=== PATIENT | male | born 1995 | race Asian ===

== ENCOUNTER 2021-09-26 17:44 | Inpatient (IN) | payer MEDICAID ==
[~2021-09-26] VITALS: Ht 167.6 cm; Wt 75.7 kg
[2021-09-26 18:52] LABS: BASOPHILS % (AUTO) 0.7 % (0.0-2.0); HEMATOCRIT 41.5 % (41-53); HEMOGLOBIN 13.8 g/dL (13.5-17.5); LYMPHOCYTES # (AUTO) 2.9 K/uL (1.0-4.8); LYMPHOCYTES % (AUTO) 33.7 % (22.0-44.0); MEAN CORPUSCULAR HGB CONC 33.4 G/dL (31.0-37.0); MEAN CORPUSCULAR VOLUME 81 fL (80-100); MONOCYTES # (AUTO) 0.7 K/uL (0.1-1.0); MONOCYTES % (AUTO) 7.9 % (2.0-9.0); NEUTROPHILS # (AUTO) 4.6 K/uL (1.8-7.7); NEUTROPHILS % (AUTO) 53.7 % (40.0-70.0); PLATELET COUNT (AUTO) 350 K/uL (150-450); RED BLOOD CELL COUNT(AUTO) 5.12 MIL/uL (4.50-5.90); RED CELL DISTRIBUTION WIDTH 13.9 % (11.5-14.5)
[2021-09-26 18:54] LABS: COVID AG,FIA SOURCE NASOPHARYNGEAL
[2021-09-26 19:09] LABS: ANION GAP 9 mmol/L (8-16); CALCIUM, TOTAL 9.2 mg/dL (8.8-10.5); CARBON DIOXIDE 28 mmol/L (22-29); CHLORIDE 103 mmol/L (98-107); GLOMERULAR FILTR. RATE CALC > 60 mL/min (>60); GLUCOSE,RANDOM 100 mg/dL (70-110); POTASSIUM 3.4 mmol/L (3.5-5.1); SODIUM SERUM 140 mmol/L (136-145); UREA NITROGEN, BLOOD 18 mg/dL (7-18)
[2021-09-26 19:26] LABS: ALANINE AMINOTRANSFERASE 23 U/L (12-78); ALBUMIN 4.3 g/dL (3.4-5.0); ALKALINE PHOSPHATASE 20 U/L (46-116); ASPARTATE AMINOTRANSFERASE 23 U/L (15-37); BILIRUBIN,TOTAL 1.4 mg/dL (0.1-1.0); FREE T4 (FREE THYROXINE) 1.19 ng/dL (0.76-1.46); TOTAL PROTEIN, SERUM 8.4 g/dL (6.4-8.2)
[2021-09-26] MEDS ORDERED: LORazepam 2 MG TABLET PO ONE (22:00)
[2021-09-26] MEDS ORDERED: DiphenhydrAMINE HCL 50 MG CAPSULE PO ONE (22:00)
[2021-09-26] MEDS ORDERED: HALOPERIDOL 5 MG TABLET PO ONE (22:00)
[2021-09-26] MEDS ORDERED: POTASSIUM CHLORIDE 20 MEQ ER TABLET PO ONE (22:30)
[2021-09-26] MEDS ORDERED: QUEtiapine FUMARATE 100 MG TABLET PO PRN (23:00)
[2021-09-27 00:28] LABS: CHOL/HDL RATIO 4.4 (4.2-7.3); CHOLESTEROL 228 mg/dL (131-200); HDL CHOLESTEROL 52 mg/dL (40-60); LDL CHOL (CALC.) 152 mg/dL (0-130); TRIGLYCERIDES 122 mg/dL (15-150)
[2021-09-27 02:43] VITALS: BP 118/70
[2021-09-27] MEDS ORDERED: INFLUENZA VIRUS VACCINE QVS 2021-22 (6MO+)/PF 60 MCG/0.5 ML SYRINGE IM. ONE (03:30)
[2021-09-27 07:19] LABS: ANION GAP 7 mmol/L (8-16); CALCIUM, TOTAL 8.9 mg/dL (8.8-10.5); CARBON DIOXIDE 27 mmol/L (22-29); CHLORIDE 106 mmol/L (98-107); CREATININE 0.86 mg/dL (0.60-1.30); GLOMERULAR FILTR. RATE CALC > 60 mL/min (>60); GLUCOSE,RANDOM 99 mg/dL (70-110); POTASSIUM 3.5 mmol/L (3.5-5.1); SODIUM SERUM 140 mmol/L (136-145); UREA NITROGEN, BLOOD 16 mg/dL (7-18)
[2021-09-27] MEDS ORDERED: ALBUTEROL SULFATE HFA 90 MCG/PUFF 8 GM INHALER IH PRN (07:30)
[2021-09-27] MEDS ORDERED: MAGNESIUM HYDROXIDE SUSPENSION 30 ML UDCUP PO PRN (07:30)
[2021-09-27] MEDS ORDERED: MAG HYDROX/AL HYDROX/SIMETH ES 30 ML SUSPENSION UDCUP PO PRN (07:30)
[2021-09-27] MEDS ORDERED: ACETAMINOPHEN 325 MG TABLET PO PRN (07:30)
[2021-09-27] MEDS ORDERED: NICOTINE 14 MG/24 HOUR PATCH TD PRN (07:30)
[2021-09-27] MEDS ORDERED: PETROLATUM,WHITE 28 GM JELLY TP PRN (07:30)
[2021-09-27] MEDS ORDERED: CloNIDine HCL 0.1 MG TABLET PO PRN (07:30)
[2021-09-27] MEDS ORDERED: DOCUSATE SODIUM 100 MG CAPSULE PO PRN (07:30)
[2021-09-27] MEDS ORDERED: LOPERAMIDE HCL 2 MG CAPSULE PO PRN (07:30)
[2021-09-27] MEDS ORDERED: IBUPROFEN 400 MG TABLET PO PRN (07:30)
[2021-09-27] MEDS ORDERED: ONDANSETRON HCL 4 MG TABLET PO PRN (07:30)
[2021-09-27] MEDS ORDERED: GuaiFENesin/D-METHORPHAN [SUGAR-FREE] 200-20MG/10 ML SYRUP UDCUP PO PRN (07:30)
[2021-09-27 08:33] VITALS: BP 129/73
[2021-09-27] MEDS: RisperiDONE 1 MG TABLET PO SCH ×2 (11:45→20:44)
[2021-09-28 08:24] VITALS: BP 109/68
[2021-09-28] MEDS: RisperiDONE 1 MG TABLET PO SCH ×2 (08:28→20:43)
[2021-09-28] MEDS: HALOPERIDOL 5 MG TABLET PO PRN (16:06)
[2021-09-28] MEDS: LORazepam 2 MG TABLET PO PRN (16:07)
[2021-09-28 16:24] VITALS: BP 143/89
[2021-09-29 06:29] VITALS: BP 124/79
[2021-09-29 08:20] VITALS: BP 142/98
[2021-09-29] MEDS: RisperiDONE 1 MG TABLET PO SCH ×2 (08:55→20:40)
[2021-09-29] MEDS: LORazepam 2 MG TABLET PO PRN ×2 (08:55→16:53)
[2021-09-29] MEDS: HALOPERIDOL 5 MG TABLET PO PRN (16:53)
[2021-09-29 16:54] VITALS: BP 100/72
[2021-09-30 06:30] VITALS: BP 118/75
[2021-09-30 08:16] VITALS: BP 131/78
[2021-09-30] MEDS: LORazepam 2 MG TABLET PO PRN ×2 (08:30→20:12)
[2021-09-30] MEDS: RisperiDONE 1 MG TABLET PO SCH ×2 (08:30→20:11)
[2021-09-30 16:22] VITALS: BP 144/81
[2021-10-01 00:10] VITALS: BP 128/80
[2021-10-01 08:08] VITALS: BP 119/78
[2021-10-01] MEDS: RisperiDONE 1 MG TABLET PO SCH ×2 (08:53→20:11)
[2021-10-01 22:41] VITALS: BP 112/72
[2021-10-02 03:55] VITALS: BP 110/78
[2021-10-02 08:08] VITALS: BP 132/90
[2021-10-02] MEDS: RisperiDONE 1 MG TABLET PO SCH (08:20)
[2021-10-02] MEDS ORDERED: RISP1TAB89 PO (11:12)
== END 2021-10-02 13:30 | disposition left against medical advice (07) | DRG 750 ==
LOC: EMS 18:31 → B3A 09-27 00:19
PROVIDERS: ADMIT Psychiatry & Neurology Psychiatry; ATTEND Psychiatry & Neurology Psychiatry
DX: F20.0 Paranoid schizophrenia (principal); E78.5 Hyperlipidemia, unspecified; Z53.21 Procedure and treatment not carried out due to patient leaving prior to being seen by health care provider; E87.6 Hypokalemia; Z20.822 Contact with and (suspected) exposure to COVID-19; R10.13 Epigastric pain; F12.90 Cannabis use, unspecified, uncomplicated; Z79.899 Other long term (current) drug therapy
CPT/HCPCS: 80048; 80053; 80061; 84439; 84443; 85025; 99285; G0480

== ENCOUNTER 2023-03-25 04:33 | Inpatient (IN) | payer MEDICAID ==
[~2023-03-25] VITALS: Ht 167.6 cm; Wt 84.4 kg
[~2023-03-25 04:33] MED LIST: RISP1TAB89 PO
[2023-03-25] MEDS ORDERED: RisperiDONE 1 MG TABLET PO ONE (05:00)
[2023-03-25] MEDS ORDERED: BACITRACIN 0.9 GM PACKET OINTMENT TP ONE (05:00)
[2023-03-25] MEDS ORDERED: DiphenhydrAMINE HCL 25 MG CAPSULE PO ONE (05:00)
[2023-03-25] MEDS ORDERED: LORazepam 2 MG TABLET PO ONE (05:00)
[2023-03-25 05:35] LABS: BASOPHILS % (AUTO) 0.7 % (0.0-2.0); EOSINOPHILS % (AUTO) 7.9 % (1.0-6.0); HEMATOCRIT 42.6 % (41-53); LYMPHOCYTES # (AUTO) 3.2 K/uL (1.0-4.8); LYMPHOCYTES % (AUTO) 40.3 % (22.0-44.0); MEAN CORPUSCULAR HEMOGLOBIN 27.5 pg (26.0-34.0); MEAN CORPUSCULAR HGB CONC 32.9 G/dL (31.0-37.0); MEAN CORPUSCULAR VOLUME 84 fL (80-100); MONOCYTES # (AUTO) 0.6 K/uL (0.1-1.0); MONOCYTES % (AUTO) 7.5 % (2.0-9.0); NEUTROPHILS # (AUTO) 3.4 K/uL (1.8-7.7); NEUTROPHILS % (AUTO) 43.6 % (40.0-70.0); PLATELET COUNT (AUTO) 323 K/uL (150-450); RED CELL DISTRIBUTION WIDTH 13.5 % (11.5-14.5)
[2023-03-25 05:45] LABS: ANION GAP 9 mmol/L (8-16); CALCIUM, TOTAL 8.7 mg/dL (8.8-10.5); CARBON DIOXIDE 26 mmol/L (22-29); CHLORIDE 104 mmol/L (98-107); CREATININE 0.96 mg/dL (0.60-1.30); GLOMERULAR FILTR. RATE CALC > 60 mL/min (>60); GLUCOSE,RANDOM 100 mg/dL (70-110); POTASSIUM 3.3 mmol/L (3.5-5.1); SODIUM SERUM 139 mmol/L (136-145)
[2023-03-25] MEDS ORDERED: HALOPERIDOL 5 MG TABLET PO PRN (05:45)
[2023-03-25 05:51] LABS: ALANINE AMINOTRANSFERASE 14 U/L (12-78); ALBUMIN 3.9 g/dL (3.4-5.0); ALKALINE PHOSPHATASE 23 U/L (46-116); ASPARTATE AMINOTRANSFERASE 12 U/L (15-37); BILIRUBIN,TOTAL 0.9 mg/dL (0.1-1.0); TOTAL PROTEIN, SERUM 7.7 g/dL (6.4-8.2)
[2023-03-25] MEDS ORDERED: POTASSIUM CHLORIDE 10% 40 MEQ/30 ML LIQUID UDCUP PO ONE (06:15)
[2023-03-25 06:40] LABS: COVID AG,FIA SOURCE NASOPHARYNGEAL
[2023-03-25 06:57] LABS: APPEARANCE,URINE HAZY (CLEAR); BILIRUBIN,URINE NEGATIVE (NEGATIVE); GLUCOSE, URINE (UA) NEGATIVE (NEGATIVE); KETONES,URINE NEGATIVE (NEGATIVE); LEUKOCYTE ESTERASE ,URINE NEGATIVE (NEGATIVE); NITRATE,URINE NEGATIVE (NEGATIVE); OCCULT BLOOD,URINE NEGATIVE (NEGATIVE); PH,URINE 6.5 (5.0-8.0); PROTEIN,URINE 30-70 mg/dL (NEGATIVE); SPECIFIC GRAVITIY, URINE 1.026 (1.003-1.030); UROBILINOGEN,URINE <=1.0 mg/dL (<=1.0)
[2023-03-25 07:04] LABS: AMPHET/METH SCREEN,URINE NEGATIVE (NEGATIVE); BARBITURATE SCREEN, URINE NEGATIVE (NEGATIVE); BENZODIAZEPINES SCREEN,URINE NEGATIVE (NEGATIVE); CANNABINOID SCREEN,URINE NEGATIVE (NEGATIVE); COCAINE SCREEN,URINE NEGATIVE (NEGATIVE); METHADONE SCREEN, URINE NEGATIVE (NEGATIVE); OPIATE SCREEN,URINE NEGATIVE (NEGATIVE); PHENCYCLIDINE SCREEN,URINE NEGATIVE (NEGATIVE)
[2023-03-25] MEDS ORDERED: NICOTINE 14 MG/24 HOUR PATCH TD PRN (17:30)
[2023-03-25] MEDS ORDERED: MAG HYDROX/AL HYDROX/SIMETH ES 30 ML SUSPENSION UDCUP PO PRN (17:30)
[2023-03-25] MEDS ORDERED: DOCUSATE SODIUM 100 MG CAPSULE PO PRN (17:30)
[2023-03-25] MEDS ORDERED: CloNIDine HCL 0.1 MG TABLET PO PRN (17:30)
[2023-03-25] MEDS ORDERED: PETROLATUM,WHITE 28 GM JELLY TP PRN (17:30)
[2023-03-25] MEDS ORDERED: ACETAMINOPHEN 325 MG TABLET PO PRN (17:30)
[2023-03-25] MEDS ORDERED: ONDANSETRON HCL 4 MG TABLET PO PRN (17:30)
[2023-03-25] MEDS ORDERED: ALBUTEROL SULFATE HFA 90 MCG/PUFF 8 GM INHALER IH PRN (17:30)
[2023-03-25] MEDS ORDERED: MAGNESIUM HYDROXIDE SUSPENSION 30 ML UDCUP PO PRN (17:30)
[2023-03-25] MEDS ORDERED: LOPERAMIDE HCL 2 MG CAPSULE PO PRN (17:30)
[2023-03-25 18:37] VITALS: BP 126/82; PULSE 65; RESP 18; TEMP 97.7; O2SAT 100
[2023-03-25 20:44] VITALS: BP 112/76; PULSE 75; RESP 17; TEMP 97.5; O2SAT 100
[2023-03-26 08:25] LABS: CHOL/HDL RATIO 5.4 (4.2-7.3)
[2023-03-26 08:28] LABS: HEMOGLOBIN A1C 4.9 % (3.8-5.6)
[2023-03-26 08:29] LABS: THYROID STIMULATING HORMONE 1.15 uIU/mL (0.36-3.74)
[2023-03-26 08:36] VITALS: RESP 18
[2023-03-26] MEDS: LORazepam 2 MG TABLET PO PRN (10:00)
[2023-03-26] MEDS ORDERED: RisperiDONE 2 MG TABLET PO ONE (13:45)
[2023-03-26] MEDS: RisperiDONE 2 MG TABLET PO SCH (17:05)
[2023-03-26 20:19] VITALS: BP 109/64; PULSE 70; RESP 18; TEMP 97.7; O2SAT 98
[2023-03-27 08:28] VITALS: RESP 17
[2023-03-27] MEDS: RisperiDONE 2 MG TABLET PO SCH ×2 (08:41→17:12)
[2023-03-27] MEDS: LORazepam 2 MG TABLET PO PRN ×2 (17:12→21:14)
[2023-03-27] MEDS: IBUPROFEN 400 MG TABLET PO PRN (18:11)
[2023-03-27 18:12] VITALS: RESP 16
[2023-03-27 19:36] VITALS: RESP 16
[2023-03-27 20:17] VITALS: BP 139/84; PULSE 90; RESP 20; TEMP 97.8; O2SAT 99
[2023-03-27] MEDS: ZOLPIDEM TARTRATE 10 MG TABLET PO PRN (20:46)
[2023-03-27 21:46] VITALS: RESP 18
[2023-03-28 09:00] VITALS: BP 123/79; PULSE 95; RESP 18; TEMP 98; O2SAT 99
[2023-03-28] MEDS: RisperiDONE 2 MG TABLET PO SCH ×2 (09:34→17:56)
[2023-03-28 18:35] VITALS: RESP 17
[2023-03-28] MEDS: IBUPROFEN 400 MG TABLET PO PRN (18:35)
[2023-03-28] MEDS ORDERED: DiphenhydrAMINE HCL 50 MG/ML VIAL ONE (19:01)
[2023-03-28] MEDS ORDERED: DiphenhydrAMINE HCL 50 MG/ML VIAL IM ONE (19:15)
[2023-03-28 19:35] VITALS: RESP 18
[2023-03-28 20:54] VITALS: BP 123/69; PULSE 100; RESP 17; TEMP 97.8; O2SAT 100
[2023-03-29] MEDS: GuaiFENesin/D-METHORPHAN [SUGAR-FREE] 200-20MG/10 ML SYRUP UDCUP PO PRN (00:11)
[2023-03-29] MEDS: RisperiDONE 2 MG TABLET PO SCH ×2 (08:16→16:12)
[2023-03-29] MEDS: BENZTROPINE MESYLATE 1 MG TABLET PO SCH ×2 (08:16→16:12)
[2023-03-29 09:36] VITALS: BP 122/81; PULSE 75; RESP 20; TEMP 97.7; O2SAT 99
[2023-03-29 20:45] VITALS: BP 119/82; PULSE 96; RESP 18; TEMP 97.8; O2SAT 100
[2023-03-29] MEDS: LORazepam 2 MG TABLET PO PRN (21:05)
[2023-03-30] MEDS: RisperiDONE 2 MG TABLET PO SCH (08:21)
[2023-03-30] MEDS: BENZTROPINE MESYLATE 1 MG TABLET PO SCH ×2 (08:21→17:28)
[2023-03-30 08:32] VITALS: BP 100/64; PULSE 69; RESP 17; TEMP 98; O2SAT 99
[2023-03-30] MEDS: RisperiDONE 3 MG TABLET PO SCH (17:28)
[2023-03-30] MEDS: LORazepam 2 MG TABLET PO PRN (17:28)
[2023-03-30 20:22] VITALS: BP 122/68; PULSE 80; RESP 20; TEMP 97.7; O2SAT 98
[2023-03-30] MEDS: ZOLPIDEM TARTRATE 10 MG TABLET PO PRN (20:25)
[2023-03-31] MEDS: RisperiDONE 3 MG TABLET PO SCH ×2 (08:06→16:51)
[2023-03-31] MEDS: BENZTROPINE MESYLATE 1 MG TABLET PO SCH ×2 (08:06→16:52)
[2023-03-31 08:56] VITALS: BP 121/86; PULSE 94; RESP 17; TEMP 97.8; O2SAT 100
[2023-03-31] MEDS: LORazepam 2 MG TABLET PO PRN (16:52)
[2023-03-31 20:17] VITALS: BP 145/82; PULSE 85; RESP 18; TEMP 97.6
[2023-04-01] MEDS: BENZTROPINE MESYLATE 1 MG TABLET PO SCH ×2 (08:40→17:13)
[2023-04-01] MEDS: RisperiDONE 3 MG TABLET PO SCH ×2 (08:40→17:09)
[2023-04-01 08:42] VITALS: BP 126/70; PULSE 80; RESP 18; TEMP 96.6; O2SAT 99
[2023-04-01] MEDS: LORazepam 2 MG TABLET PO PRN (17:12)
[2023-04-01 20:22] VITALS: BP 118/72; PULSE 80; RESP 19; TEMP 97.6; O2SAT 99
[2023-04-02] MEDS: BENZTROPINE MESYLATE 1 MG TABLET PO SCH ×2 (08:29→17:10)
[2023-04-02] MEDS: RisperiDONE 3 MG TABLET PO SCH ×2 (08:29→17:10)
[2023-04-02 08:43] VITALS: BP 108/83; PULSE 74; RESP 17; TEMP 98; O2SAT 100
[2023-04-02] MEDS: IBUPROFEN 400 MG TABLET PO PRN (12:48)
[2023-04-02] MEDS: LORazepam 2 MG TABLET PO PRN (17:10)
[2023-04-02 20:23] VITALS: BP 110/70; PULSE 70; RESP 20; TEMP 98; O2SAT 98
[2023-04-03 08:32] VITALS: BP 135/76; PULSE 83; RESP 18; TEMP 97.8; O2SAT 96
[2023-04-03] MEDS: RisperiDONE 3 MG TABLET PO SCH ×2 (08:36→16:19)
[2023-04-03] MEDS: BENZTROPINE MESYLATE 1 MG TABLET PO SCH ×2 (08:36→16:19)
[2023-04-03] MEDS: LORazepam 2 MG TABLET PO PRN (16:19)
[2023-04-03 20:03] VITALS: BP 118/70; PULSE 78; RESP 19; TEMP 97.8
[2023-04-04] MEDS: BENZTROPINE MESYLATE 1 MG TABLET PO SCH ×2 (08:02→16:07)
[2023-04-04] MEDS: RisperiDONE 3 MG TABLET PO SCH ×2 (08:02→16:07)
[2023-04-04 08:31] VITALS: BP 109/83; PULSE 81; RESP 18; TEMP 97.6; O2SAT 100
[2023-04-04] MEDS: GuaiFENesin/D-METHORPHAN [SUGAR-FREE] 200-20MG/10 ML SYRUP UDCUP PO PRN (13:08)
[2023-04-04 21:42] VITALS: BP 131/76; PULSE 93; RESP 16; TEMP 97.8; O2SAT 100
[2023-04-05 08:18] VITALS: BP 144/76; PULSE 97; RESP 18; TEMP 97.6; O2SAT 99
[2023-04-05] MEDS: BENZTROPINE MESYLATE 1 MG TABLET PO SCH ×2 (08:25→16:32)
[2023-04-05] MEDS: RisperiDONE 3 MG TABLET PO SCH ×2 (08:25→16:31)
[2023-04-05] MEDS: LORazepam 2 MG TABLET PO PRN ×2 (13:21→19:20)
[2023-04-05 20:42] VITALS: BP 128/76; PULSE 86; RESP 18; TEMP 97.2; O2SAT 98
[2023-04-06] MEDS: RisperiDONE 3 MG TABLET PO SCH ×2 (08:10→16:48)
[2023-04-06] MEDS: BENZTROPINE MESYLATE 1 MG TABLET PO SCH ×2 (08:10→16:48)
[2023-04-06 08:19] VITALS: BP 113/80; PULSE 93; RESP 17; TEMP 97.8; O2SAT 99
[2023-04-06] MEDS: LORazepam 2 MG TABLET PO PRN (17:04)
[2023-04-06 20:20] VITALS: BP 114/72; PULSE 90; TEMP 98.2
[2023-04-06] MEDS: ZOLPIDEM TARTRATE 10 MG TABLET PO PRN (20:31)
[2023-04-07] MEDS: BENZTROPINE MESYLATE 1 MG TABLET PO SCH ×2 (08:22→16:36)
[2023-04-07] MEDS: RisperiDONE 3 MG TABLET PO SCH ×2 (08:22→16:36)
[2023-04-07 08:41] VITALS: BP 131/98; PULSE 77; RESP 18; TEMP 97.9; O2SAT 99
[2023-04-07] MEDS: LORazepam 2 MG TABLET PO PRN (16:36)
[2023-04-07] MEDS: GuaiFENesin/D-METHORPHAN [SUGAR-FREE] 200-20MG/10 ML SYRUP UDCUP PO PRN (16:42)
[2023-04-07 20:22] VITALS: BP 128/84; PULSE 80; RESP 19; TEMP 98.2; O2SAT 98
[2023-04-08] MEDS: LORazepam 2 MG TABLET PO PRN ×2 (08:27→17:06)
[2023-04-08] MEDS: RisperiDONE 3 MG TABLET PO SCH ×2 (08:27→17:04)
[2023-04-08] MEDS: BENZTROPINE MESYLATE 1 MG TABLET PO SCH ×2 (08:27→17:06)
[2023-04-08 08:49] VITALS: BP 100/62; PULSE 79; RESP 17; TEMP 97.5; O2SAT 96
[2023-04-08 20:19] VITALS: BP 106/70; PULSE 78; RESP 18; TEMP 97.7; O2SAT 97
[2023-04-09] MEDS: RisperiDONE 3 MG TABLET PO SCH ×2 (08:32→16:56)
[2023-04-09] MEDS: BENZTROPINE MESYLATE 1 MG TABLET PO SCH ×2 (08:32→16:59)
[2023-04-09 09:24] VITALS: BP 112/92; PULSE 100; RESP 18; TEMP 97.9; O2SAT 99
[2023-04-09] MEDS: LORazepam 2 MG TABLET PO PRN (16:59)
[2023-04-09 20:23] VITALS: BP 114/82; PULSE 87; RESP 20; TEMP 98.4; O2SAT 97
[2023-04-10] MEDS: RisperiDONE 3 MG TABLET PO SCH ×2 (08:19→17:19)
[2023-04-10] MEDS: BENZTROPINE MESYLATE 1 MG TABLET PO SCH ×2 (08:19→17:19)
[2023-04-10 08:37] VITALS: BP 111/70; PULSE 96; RESP 17; TEMP 97.5; O2SAT 97
[2023-04-10] MEDS: LORazepam 2 MG TABLET PO PRN ×2 (12:29→17:19)
[2023-04-10 20:06] VITALS: BP 104/82; PULSE 93; RESP 18; TEMP 97.7; O2SAT 99
[2023-04-11] MEDS: BENZTROPINE MESYLATE 1 MG TABLET PO SCH ×2 (08:05→16:12)
[2023-04-11] MEDS: RisperiDONE 3 MG TABLET PO SCH ×2 (08:05→16:12)
[2023-04-11 08:55] VITALS: BP 119/61; PULSE 70; RESP 20; TEMP 98; O2SAT 99
[2023-04-11] MEDS: GuaiFENesin/D-METHORPHAN [SUGAR-FREE] 200-20MG/10 ML SYRUP UDCUP PO PRN (19:39)
[2023-04-11 20:45] VITALS: BP 132/88; PULSE 75; RESP 18; TEMP 97.2; O2SAT 97
[2023-04-12 08:26] VITALS: BP 114/74; PULSE 81; RESP 18; TEMP 98.3; O2SAT 98
[2023-04-12] MEDS: BENZTROPINE MESYLATE 1 MG TABLET PO SCH ×2 (08:51→16:23)
[2023-04-12] MEDS: RisperiDONE 3 MG TABLET PO SCH ×2 (08:51→16:23)
[2023-04-12] MEDS: LORazepam 2 MG TABLET PO PRN (14:55)
[2023-04-12 20:29] VITALS: BP 109/77; PULSE 101; RESP 20; TEMP 97.8; O2SAT 98
[2023-04-13] MEDS: RisperiDONE 3 MG TABLET PO SCH ×2 (08:14→17:05)
[2023-04-13] MEDS: BENZTROPINE MESYLATE 1 MG TABLET PO SCH ×2 (08:14→17:06)
[2023-04-13 08:42] VITALS: BP 117/77; PULSE 80; RESP 17; TEMP 98; O2SAT 98
[2023-04-13] MEDS: LORazepam 2 MG TABLET PO PRN (17:06)
[2023-04-13] MEDS: ZOLPIDEM TARTRATE 10 MG TABLET PO PRN (20:24)
[2023-04-13 20:29] VITALS: BP 114/64; PULSE 72; RESP 19; TEMP 97.8; O2SAT 97
[2023-04-14] MEDS: RisperiDONE 3 MG TABLET PO SCH ×2 (08:19→17:17)
[2023-04-14] MEDS: BENZTROPINE MESYLATE 1 MG TABLET PO SCH ×2 (08:19→17:17)
[2023-04-14 09:21] VITALS: BP 98/59; PULSE 75; RESP 17; TEMP 98.1; O2SAT 97
[2023-04-14] MEDS: LORazepam 2 MG TABLET PO PRN (19:10)
[2023-04-14 20:31] VITALS: BP 123/73; PULSE 90; RESP 18; TEMP 97.6; O2SAT 98
[2023-04-15 08:18] VITALS: BP 105/59; PULSE 69; RESP 17; TEMP 98; O2SAT 96
[2023-04-15] MEDS: RisperiDONE 3 MG TABLET PO SCH (08:32)
[2023-04-15] MEDS: BENZTROPINE MESYLATE 1 MG TABLET PO SCH (08:32)
[2023-04-15] MEDS ORDERED: RISP3TAB63 PO (09:43)
[2023-04-15] MEDS ORDERED: BENZ1TAB84 PO (09:43)
== END 2023-04-15 12:45 | disposition home or self-care (01) | DRG 750 ==
LOC: EMS 04:33 → B3A 15:39 → B2S 04-14 18:34
PROVIDERS: ADMIT Psychiatry & Neurology Child & Adolescent Psychiatry; ATTEND Psychiatry & Neurology Child & Adolescent Psychiatry
DX: F25.0 Schizoaffective disorder, bipolar type (principal); Z91.199 Patient's noncompliance with other medical treatment and regimen due to unspecified reason; E87.6 Hypokalemia; Z20.822 Contact with and (suspected) exposure to COVID-19; G47.00 Insomnia, unspecified; F41.9 Anxiety disorder, unspecified; Z79.899 Other long term (current) drug therapy
CPT/HCPCS: 80053; 80061; 80307; 81003; 83036; 84132; 84443; 85025; 99285; G0480; J1200; J3535

== ENCOUNTER 2024-03-14 12:09 | Inpatient (IN) | payer MEDICAID ==
[~2024-03-14] VITALS: Ht 167.6 cm; Wt 85.8 kg
[~2024-03-14 12:09] MED LIST changes: +BENZ-247 PO; -RISP1TAB89 PO; +RISP3TAB77 PO
[2024-03-14] MEDS: LORazepam 2 MG/ML VIAL IM ONE (12:36)
[2024-03-14] MEDS: DiphenhydrAMINE HCL 50 MG/ML VIAL IM ONE (12:36)
[2024-03-14] MEDS: HALOPERIDOL LACTATE 5 MG/ML VIAL IM ONE (12:38)
[2024-03-14 13:19] LABS: BASOPHILS % (AUTO) 0.7 % (0.0-2.0); EOSINOPHILS % (AUTO) 4.9 % (1.0-6.0); HEMATOCRIT 41.1 % (41-53); HEMOGLOBIN 13.3 g/dL (13.5-17.5); LYMPHOCYTES # (AUTO) 1.6 K/uL (1.0-4.8); LYMPHOCYTES % (AUTO) 25.2 % (22.0-44.0); MEAN CORPUSCULAR HEMOGLOBIN 26.9 pg (26.0-34.0); MEAN CORPUSCULAR HGB CONC 32.4 G/dL (31.0-37.0); MEAN CORPUSCULAR VOLUME 83 fL (80-100); MONOCYTES # (AUTO) 0.4 K/uL (0.1-1.0); MONOCYTES % (AUTO) 6.6 % (2.0-9.0); NEUTROPHILS # (AUTO) 3.8 K/uL (1.8-7.7); NEUTROPHILS % (AUTO) 62.6 % (40.0-70.0); PLATELET COUNT (AUTO) 312 K/uL (150-450); RED BLOOD CELL COUNT(AUTO) 4.95 MIL/uL (4.50-5.90); RED CELL DISTRIBUTION WIDTH 13.6 % (11.5-14.5); WHITE BLOOD COUNT (AUTO) 6.1 K/uL (4.5-11.0)
[2024-03-14 13:29] LABS: ANION GAP 10 mmol/L (8-16); CALCIUM, TOTAL 8.8 mg/dL (8.8-10.5); CARBON DIOXIDE 25 mmol/L (22-29); CHLORIDE 112 mmol/L (98-107); CREATININE 0.99 mg/dL (0.60-1.30); GLOMERULAR FILTR. RATE CALC > 60 mL/min (>60); GLUCOSE,RANDOM 140 mg/dL (70-110); POTASSIUM 3.3 mmol/L (3.5-5.1); SODIUM SERUM 146 mmol/L (136-145); UREA NITROGEN, BLOOD 13 mg/dL (7-18)
[2024-03-14 13:34] LABS: ALANINE AMINOTRANSFERASE 19 U/L (12-78); ALBUMIN 3.8 g/dL (3.4-5.0); ALKALINE PHOSPHATASE 20 U/L (46-116); ASPARTATE AMINOTRANSFERASE 18 U/L (15-37); TOTAL PROTEIN, SERUM 7.6 g/dL (6.4-8.2)
[2024-03-14 13:38] LABS: ALCOHOL, BLOOD (SERUM) < 3 mg/dL (0-10)
[2024-03-14] MEDS: TUBERCULIN, PURIFIED PROTEIN DERIVATIVE 5 TU/0.1 ML SYRINGE ID ONE (13:58)
[2024-03-14] MEDS ORDERED: ACETAMINOPHEN 325 MG TABLET PO PRN (14:00)
[2024-03-14] MEDS ORDERED: LOPERAMIDE HCL 2 MG CAPSULE PO PRN (14:00)
[2024-03-14] MEDS ORDERED: MAGNESIUM HYDROXIDE SUSPENSION 30 ML UDCUP PO PRN (14:00)
[2024-03-14] MEDS ORDERED: MAG HYDROX/ALUMINUM HYD/SIMETH ES 30 ML SUSPENSION UDCUP PO PRN (14:00)
[2024-03-14] MEDS ORDERED: PROMETHAZINE HCL 25 MG TABLET PO PRN (14:00)
[2024-03-14] MEDS ORDERED: GuaiFENesin/D-METHORPHAN [SUGAR-FREE] 200-20MG/10 ML SYRUP UDCUP PO PRN (14:00)
[2024-03-14 19:14] LABS: COVID AG,FIA SOURCE NASAL SWAB
[2024-03-14 19:38] LABS: SARS-COV2 (COVID) ANTIGEN,FIA Negative (Negative)
[2024-03-14] MEDS: THIAMINE 100 MG TABLET PO SCH (20:17)
[2024-03-14] MEDS: OLANZapine 5 MG RAPDIS TABLET PO SCH (20:17)
[2024-03-14] MEDS: MELATONIN 5 MG TABLET PO SCH (20:17)
[2024-03-15 08:45] LABS: HEMOGLOBIN A1C 4.7 % (3.8-5.6)
[2024-03-15 08:52] LABS: CHOL/HDL RATIO 4.2 (4.2-7.3); CHOLESTEROL 213 mg/dL (131-200); FREE T4 (FREE THYROXINE) 1.16 ng/dL (0.76-1.46); HDL CHOLESTEROL 51 mg/dL (40-60); LDL CHOL (CALC.) 142 mg/dL (0-130); TRIGLYCERIDES 102 mg/dL (15-150)
[2024-03-15] MEDS: FOLIC ACID 1 MG TABLET PO SCH (09:00)
[2024-03-15] MEDS: LORazepam 2 MG TABLET PO PRN (09:07)
[2024-03-15] MEDS: MULTIVITAMINS WITH MINERALS, THERAPEUTIC TABLET PO SCH (09:07)
[2024-03-15] MEDS: DiphenhydrAMINE HCL 50 MG/ML VIAL IM ONE ×2 (09:42→09:47)
[2024-03-15] MEDS: HALOPERIDOL LACTATE 5 MG/ML VIAL IM ONE ×2 (09:42→09:47)
[2024-03-15] MEDS: LORazepam 2 MG/ML VIAL IM ONE (09:42)
[2024-03-15] MEDS: NALTREXONE HCL 50 MG TABLET PO SCH (10:00)
[2024-03-15] MEDS: PALIPERIDONE PALMITATE 234 MG/1.5 ML SYRINGE IM ONE (16:00)
[2024-03-15] MEDS: OLANZapine 5 MG RAPDIS TABLET PO PRN (17:32)
[2024-03-15] MEDS: HydrOXYzine PAMOATE 50 MG CAPSULE PO PRN (17:33)
[2024-03-15 20:00] VITALS: RESP 18
[2024-03-15] MEDS: ZOLPIDEM TARTRATE 10 MG TABLET PO PRN (20:34)
[2024-03-16] MEDS: POTASSIUM CHLORIDE 20 MEQ ER TABLET PO ONE (08:28)
[2024-03-16 20:44] VITALS: PULSE 108; TEMP 97.5
[2024-03-17 08:19] VITALS: BP 115/60; PULSE 80; RESP 18; TEMP 98.4; O2SAT 95
[2024-03-17 20:16] VITALS: BP 156/84; PULSE 87; RESP 17; TEMP 97.7; O2SAT 98
[2024-03-17] MEDS: OLANZapine 10 MG RAPDIS TABLET PO SCH (20:58)
[2024-03-18 08:15] VITALS: RESP 18
[2024-03-18 21:22] VITALS: RESP 16
[2024-03-19 08:08] VITALS: RESP 16
[2024-03-19] MEDS: PALIPERIDONE PALMITATE 156 MG/ML SYRINGE IM ONE (09:00)
[2024-03-19 12:48] VITALS: BP 124/108; PULSE 83; RESP 16; TEMP 97.7; O2SAT 100
[2024-03-19 20:26] VITALS: BP 112/90; PULSE 75; RESP 17; TEMP 98.2; O2SAT 100
[2024-03-20 08:00] VITALS: RESP 18
[2024-03-21 08:10] VITALS: RESP 18
[2024-03-22 08:11] VITALS: RESP 16
[2024-03-23 08:45] VITALS: RESP 17
[2024-03-23] MEDS: DIVALPROEX SODIUM 500 MG ER TABLET PO SCH (20:54)
[2024-03-25 08:25] VITALS: RESP 18
[2024-03-25 21:00] VITALS: BP 140/85; PULSE 75; RESP 18; TEMP 97.8; O2SAT 99
[2024-03-26 08:15] VITALS: BP 100/62; PULSE 90; RESP 18; TEMP 97.4; O2SAT 98
[2024-03-26 20:32] VITALS: RESP 16
[2024-03-27 20:28] VITALS: RESP 17
[2024-03-28 08:37] VITALS: RESP 18
[2024-03-28 20:17] VITALS: RESP 17
[2024-03-29 08:41] VITALS: RESP 16
[2024-03-29 20:24] VITALS: BP 152/121; PULSE 68; TEMP 98.4; O2SAT 96
[2024-03-30 08:55] VITALS: RESP 18
[2024-03-30 09:53] LABS: BASOPHILS % (AUTO) 0.7 % (0.0-2.0); EOSINOPHILS % (AUTO) 9.2 % (1.0-6.0); HEMATOCRIT 42.8 % (41-53); HEMOGLOBIN 13.9 g/dL (13.5-17.5); LYMPHOCYTES # (AUTO) 4.1 K/uL (1.0-4.8); LYMPHOCYTES % (AUTO) 58.5 % (22.0-44.0); MEAN CORPUSCULAR HEMOGLOBIN 26.8 pg (26.0-34.0); MEAN CORPUSCULAR HGB CONC 32.4 G/dL (31.0-37.0); MEAN CORPUSCULAR VOLUME 83 fL (80-100); MONOCYTES # (AUTO) 0.5 K/uL (0.1-1.0); MONOCYTES % (AUTO) 7.1 % (2.0-9.0); NEUTROPHILS # (AUTO) 1.7 K/uL (1.8-7.7); NEUTROPHILS % (AUTO) 24.5 % (40.0-70.0); PLATELET COUNT (AUTO) 348 K/uL (150-450); RED BLOOD CELL COUNT(AUTO) 5.17 MIL/uL (4.50-5.90); RED CELL DISTRIBUTION WIDTH 13.5 % (11.5-14.5); WHITE BLOOD COUNT (AUTO) 7.1 K/uL (4.5-11.0)
[2024-03-30 10:05] LABS: POTASSIUM 3.8 mmol/L (3.5-5.1)
[2024-03-30] MEDS: CloZAPine 25 MG TABLET PO SCH (12:00)
[2024-03-31 08:37] VITALS: RESP 17
[2024-03-31] MEDS: CloZAPine 25 MG TABLET PO SCH ×2 (08:48→20:46)
[2024-04-01] MEDS: CloZAPine 25 MG TABLET PO SCH ×2 (08:20→20:49)
[2024-04-01 08:59] VITALS: RESP 18
[2024-04-01] MEDS: OLANZapine 5 MG RAPDIS TABLET PO SCH (20:49)
[2024-04-02] MEDS: GABAPENTIN 300 MG CAPSULE PO PRN (08:18)
[2024-04-02] MEDS: CloZAPine 25 MG TABLET PO SCH (08:19)
[2024-04-02 08:22] VITALS: RESP 16
[2024-04-02 20:49] VITALS: BP 136/72; PULSE 78; RESP 17; TEMP 98; O2SAT 98
[2024-04-03 10:25] VITALS: RESP 16
[2024-04-03 12:06] LABS: CLOZAPINE & NORCLOZAPINE <40 ng/mL; NORCLOZAPINE <20 ng/mL (Not Estab.)
[2024-04-03 20:25] VITALS: BP 116/76; PULSE 79; TEMP 97.5; O2SAT 99
[2024-04-04] MEDS: CloZAPine 25 MG TABLET PO SCH (08:31)
[2024-04-04 20:00] VITALS: BP 124/80; PULSE 80; RESP 18; TEMP 98; O2SAT 98
[2024-04-04] MEDS: CloZAPine 100 MG TABLET PO SCH (20:38)
[2024-04-04] MEDS: OLANZapine 10 MG RAPDIS TABLET PO SCH (21:13)
[2024-04-05] MEDS: CloZAPine 25 MG TABLET PO SCH (09:00)
[2024-04-05] MEDS: CloZAPine 100 MG TABLET PO SCH (20:04)
[2024-04-05 20:08] VITALS: BP 122/89; PULSE 89; RESP 18; TEMP 98.3
[2024-04-06 08:29] VITALS: BP 123/88; PULSE 74; RESP 15; TEMP 98.2; O2SAT 100
[2024-04-06] MEDS: CloZAPine 25 MG TABLET PO SCH (08:32)
[2024-04-06 21:02] VITALS: BP 141/85; PULSE 96; RESP 17; TEMP 98.4; O2SAT 96
[2024-04-06] MEDS: CloZAPine 100 MG TABLET PO SCH (22:10)
[2024-04-07] MEDS: CloZAPine 100 MG TABLET PO SCH (09:00)
[2024-04-07 09:15] LABS: BASOPHILS % (AUTO) 0.5 % (0.0-2.0); EOSINOPHILS % (AUTO) 3.6 % (1.0-6.0); HEMATOCRIT 46.2 % (41-53); HEMOGLOBIN 14.7 g/dL (13.5-17.5); LYMPHOCYTES # (AUTO) 4.4 K/uL (1.0-4.8); LYMPHOCYTES % (AUTO) 51.4 % (22.0-44.0); MEAN CORPUSCULAR HEMOGLOBIN 26.5 pg (26.0-34.0); MEAN CORPUSCULAR HGB CONC 31.8 G/dL (31.0-37.0); MEAN CORPUSCULAR VOLUME 83 fL (80-100); MONOCYTES # (AUTO) 0.6 K/uL (0.1-1.0); MONOCYTES % (AUTO) 7.4 % (2.0-9.0); NEUTROPHILS # (AUTO) 3.2 K/uL (1.8-7.7); NEUTROPHILS % (AUTO) 37.1 % (40.0-70.0); PLATELET COUNT (AUTO) 285 K/uL (150-450); RED BLOOD CELL COUNT(AUTO) 5.55 MIL/uL (4.50-5.90); RED CELL DISTRIBUTION WIDTH 13.8 % (11.5-14.5); WHITE BLOOD COUNT (AUTO) 8.6 K/uL (4.5-11.0)
[2024-04-07 09:21] VITALS: RESP 16
[2024-04-07] MEDS ORDERED: TUBERCULIN, PURIFIED PROTEIN DERIVATIVE 5 TU/0.1 ML SYRINGE ID ONE (15:00)
[2024-04-07 21:18] VITALS: RESP 16
[2024-04-08 09:08] VITALS: RESP 16
[2024-04-08] MEDS ORDERED: TUBERCULIN, PURIFIED PROTEIN DERIVATIVE 5 TU/0.1 ML SYRINGE ID ONE (10:00)
[2024-04-08] MEDS: TUBERCULIN, PURIFIED PROTEIN DERIVATIVE 5 TU/0.1 ML SYRINGE ID ONE (12:30)
[2024-04-08 20:17] VITALS: RESP 17
[2024-04-08] MEDS ORDERED: OLANZapine 5 MG RAPDIS TABLET PO SCH (21:00)
[2024-04-09] MEDS: CloZAPine 25 MG TABLET PO SCH (08:54)
[2024-04-09 20:17] VITALS: BP 120/71; PULSE 100; RESP 18; TEMP 97.8; O2SAT 99
[2024-04-09] MEDS: CloZAPine 100 MG TABLET PO SCH (21:21)
[2024-04-10] MEDS: CloZAPine 100 MG TABLET PO SCH (09:06)
[2024-04-10] MEDS: CloZAPine 25 MG TABLET PO SCH (09:08)
[2024-04-11] MEDS: CloZAPine 100 MG TABLET PO SCH ×2 (08:28→20:12)
[2024-04-11 08:31] VITALS: RESP 18
[2024-04-12 08:05] VITALS: RESP 18
[2024-04-12 20:12] VITALS: BP 125/76; PULSE 92; TEMP 97.4; O2SAT 97
[2024-04-13 08:18] VITALS: RESP 18
[2024-04-13 20:41] VITALS: BP 132/73; PULSE 102; TEMP 97.8; O2SAT 97
[2024-04-14 08:23] VITALS: RESP 15
[2024-04-14 09:05] LABS: BASOPHILS % (AUTO) 0.1 % (0.0-2.0); EOSINOPHILS % (AUTO) 3.4 % (1.0-6.0); HEMATOCRIT 39.4 % (41-53); HEMOGLOBIN 12.6 g/dL (13.5-17.5); LYMPHOCYTES # (AUTO) 2.5 K/uL (1.0-4.8); MEAN CORPUSCULAR HEMOGLOBIN 26.4 pg (26.0-34.0); MEAN CORPUSCULAR VOLUME 83 fL (80-100); MONOCYTES # (AUTO) 1.2 K/uL (0.1-1.0); MONOCYTES % (AUTO) 14.1 % (2.0-9.0); NEUTROPHILS # (AUTO) 4.7 K/uL (1.8-7.7); NEUTROPHILS % (AUTO) 53.4 % (40.0-70.0); PLATELET COUNT (AUTO) 248 K/uL (150-450); RED BLOOD CELL COUNT(AUTO) 4.77 MIL/uL (4.50-5.90); RED CELL DISTRIBUTION WIDTH 13.6 % (11.5-14.5); WHITE BLOOD COUNT (AUTO) 8.7 K/uL (4.5-11.0)
[2024-04-14 20:40] VITALS: BP 135/77; PULSE 116; TEMP 98.2; O2SAT 98
[2024-04-15 08:22] VITALS: RESP 16
[2024-04-15 17:50] VITALS: BP 124/72; PULSE 95; RESP 18; TEMP 97.3; O2SAT 98
[2024-04-15 20:27] VITALS: BP 128/65; PULSE 105; RESP 19; TEMP 96.8; O2SAT 96
[2024-04-16 09:30] VITALS: BP 107/69; PULSE 90; RESP 20; TEMP 98.2; O2SAT 96
[2024-04-16 21:36] VITALS: BP 128/65; PULSE 100; RESP 18; TEMP 97.7
[2024-04-17 10:08] VITALS: BP 122/75; PULSE 89; RESP 18; TEMP 98.2; O2SAT 98
[2024-04-17 20:14] VITALS: BP 136/94; PULSE 118; RESP 17; TEMP 97.5; O2SAT 94
[2024-04-18 08:24] VITALS: RESP 18
[2024-04-18 20:34] VITALS: BP 101/67; PULSE 71; TEMP 97.7; O2SAT 98
[2024-04-19 08:20] VITALS: RESP 16
[2024-04-19 20:06] LABS: CLOZAPINE & NORCLOZAPINE 729 ng/mL; NORCLOZAPINE 164 ng/mL (Not Estab.)
[2024-04-20 07:01] LABS: GLUCOMETER DEV NAME(LOC) POC.BV; POC SARS-COV2 AG, FIA NEGATIVE (NEGATIVE)
[2024-04-20 08:45] VITALS: RESP 18
[2024-04-21 08:10] VITALS: RESP 15
[2024-04-21 21:02] VITALS: BP 113/72; PULSE 82; RESP 17; TEMP 97.7; O2SAT 97
[2024-04-22 09:24] VITALS: BP 104/68; PULSE 85; RESP 17; TEMP 97; O2SAT 94
[2024-04-22 11:12] LABS: BASOPHILS % (AUTO) 0.1 % (0.0-2.0); HEMATOCRIT 32.9 % (41-53); HEMOGLOBIN 10.7 g/dL (13.5-17.5); LYMPHOCYTES % (AUTO) 21.5 % (22.0-44.0); MEAN CORPUSCULAR HEMOGLOBIN 26.9 pg (26.0-34.0); MEAN CORPUSCULAR HGB CONC 32.5 G/dL (31.0-37.0); MEAN CORPUSCULAR VOLUME 83 fL (80-100); MONOCYTES # (AUTO) 0.9 K/uL (0.1-1.0); MONOCYTES % (AUTO) 9.3 % (2.0-9.0); NEUTROPHILS # (AUTO) 5.8 K/uL (1.8-7.7); NEUTROPHILS % (AUTO) 62.1 % (40.0-70.0); PLATELET COUNT (AUTO) 457 K/uL (150-450); RED BLOOD CELL COUNT(AUTO) 3.99 MIL/uL (4.50-5.90); RED CELL DISTRIBUTION WIDTH 13.8 % (11.5-14.5); WHITE BLOOD COUNT (AUTO) 9.4 K/uL (4.5-11.0)
[2024-04-22 20:41] VITALS: BP 108/76; PULSE 87; RESP 16; TEMP 98.2
[2024-04-22 20:47] VITALS: BP 108/69; PULSE 85; RESP 16; TEMP 98.2
[2024-04-23 09:56] VITALS: BP 99/69; PULSE 69; RESP 13; TEMP 97.2
[2024-04-23 20:25] VITALS: BP 121/81; PULSE 85; RESP 18; TEMP 98.1
[2024-04-24 09:28] VITALS: BP 101/58; PULSE 78; RESP 17; TEMP 97.3; O2SAT 97
[2024-04-24 22:03] VITALS: BP 123/74; PULSE 98; RESP 18; TEMP 97.7; O2SAT 96
[2024-04-25 11:32] VITALS: RESP 18
[2024-04-25 20:47] VITALS: BP 119/65; PULSE 104; RESP 17; TEMP 97.3; O2SAT 97
[2024-04-26 08:50] VITALS: BP 109/68; PULSE 82; RESP 18; TEMP 97.5; O2SAT 96
[2024-04-27 00:35] VITALS: BP 109/70; PULSE 96; RESP 18; TEMP 97.7; O2SAT 96
[2024-04-27 08:54] VITALS: RESP 18
[2024-04-27 20:13] VITALS: BP 147/67; PULSE 117; RESP 18; TEMP 97.1; O2SAT 95
[2024-04-28 08:41] VITALS: BP 153/96; PULSE 99; RESP 18; TEMP 97.3; O2SAT 99
[2024-04-28 08:50] LABS: BASOPHILS % (AUTO) 0.3 % (0.0-2.0); HEMATOCRIT 38.8 % (41-53); HEMOGLOBIN 12.4 g/dL (13.5-17.5); LYMPHOCYTES # (AUTO) 4.2 K/uL (1.0-4.8); LYMPHOCYTES % (AUTO) 37.1 % (22.0-44.0); MEAN CORPUSCULAR HEMOGLOBIN 26.8 pg (26.0-34.0); MEAN CORPUSCULAR HGB CONC 31.9 G/dL (31.0-37.0); MEAN CORPUSCULAR VOLUME 84 fL (80-100); MONOCYTES # (AUTO) 0.7 K/uL (0.1-1.0); MONOCYTES % (AUTO) 6.1 % (2.0-9.0); NEUTROPHILS # (AUTO) 3.9 K/uL (1.8-7.7); PLATELET COUNT (AUTO) 546 K/uL (150-450); RED BLOOD CELL COUNT(AUTO) 4.62 MIL/uL (4.50-5.90); WHITE BLOOD COUNT (AUTO) 11.2 K/uL (4.5-11.0)
[2024-04-28 08:51] LABS: EOSINOPHILS % (AUTO) 21.5 % (1.0-6.0)
[2024-04-28 20:48] VITALS: BP 124/78; PULSE 113; RESP 18; TEMP 97.6; O2SAT 95
[2024-04-29 08:34] VITALS: RESP 18
[2024-04-29 17:20] VITALS: BP 111/60; PULSE 103; RESP 16; O2SAT 97
[2024-04-29 20:48] VITALS: RESP 20
[2024-04-30 09:06] VITALS: BP 133/83; PULSE 84; RESP 20; TEMP 97.7; O2SAT 97
[2024-04-30 20:19] VITALS: BP 131/68; PULSE 98; RESP 18; TEMP 98; O2SAT 97
[2024-05-01 08:07] VITALS: RESP 17
[2024-05-01 20:17] VITALS: BP 128/80; PULSE 82; RESP 18; TEMP 97.6; O2SAT 98
[2024-05-02 08:34] VITALS: RESP 18
[2024-05-02 20:37] VITALS: BP 112/61; PULSE 83; RESP 18; TEMP 97.3; O2SAT 95
[2024-05-03 08:12] VITALS: BP 101/65; PULSE 81; RESP 18; TEMP 97.5; O2SAT 97
[2024-05-03 12:46] LABS: GLUCOMETER DEV NAME(LOC) POC.BV; POC SARS-COV2 AG, FIA NEGATIVE (NEGATIVE)
[2024-05-03] MEDS ORDERED: NALT50TA33 PO (23:06)
[2024-05-03] MEDS ORDERED: MELA5TAB40 PO (23:06)
[2024-05-03] MEDS ORDERED: CLOZ100T61 PO ×2 (23:06)
[2024-05-03 23:40] VITALS: BP 113/64; PULSE 74; RESP 18; TEMP 97.6; O2SAT 96
[2024-05-04 08:27] VITALS: RESP 18
== END 2024-05-04 13:00 | DRG 750 ==
LOC: EMS 12:09 → B3A 03-15 11:45
PROVIDERS: ADMIT Psychiatry & Neurology Psychiatry; ATTEND Psychiatry & Neurology Psychiatry
PROC: GZHZZZZ Group Psychotherapy (ICD-10-PCS; principal; 2024-03-15)
PROC: GZ56ZZZ Individual Psychotherapy, Supportive (ICD-10-PCS; 2024-03-15)
DX: F20.0 Paranoid schizophrenia (principal); E87.0 Hyperosmolality and hypernatremia; D64.9 Anemia, unspecified; F41.9 Anxiety disorder, unspecified; E78.5 Hyperlipidemia, unspecified; F31.9 Bipolar disorder, unspecified; Z20.822 Contact with and (suspected) exposure to COVID-19; E87.6 Hypokalemia; T43.96XA Underdosing of unspecified psychotropic drug, initial encounter; Y92.89 Other specified places as the place of occurrence of the external cause; Z91.148 Patient's other noncompliance with medication regimen for other reason; Z79.899 Other long term (current) drug therapy
CPT/HCPCS: 80053; 80061; 80159; 80164; 83036; 84132; 84439; 85025; 86592; 87081; G0480; J1200; J1630; J2060; Q9967